=== PATIENT | male | born 1985 | race Asian ===

== ENCOUNTER 2017-09-20 23:21 | Emergency (ER) | payer OTHER ==
[~2017-09-20] VITALS: Ht 180.3 cm; Wt 86.6 kg
[2017-09-20 23:26] VITALS: Ht 180.3 cm; Wt 86.6 kg
[2017-09-21 01:11] VITALS: BP 159/92
== END 2017-09-21 01:11 | disposition home or self-care (01) ==
LOC: ED 23:21
DX: J40 Bronchitis, not specified as acute or chronic (principal)
CPT/HCPCS: J0696; J1885; Q0163